=== PATIENT | male | born 1985 | race Asian ===

== ENCOUNTER 2017-03-05 09:38 | Day surgery (SDC) | payer OTHER ==
--- NOTE | 2017-03-02 13:49 | HP ---
PREOPERATIVE HISTORY AND PHYSICAL: DATE OF SURGERY/ADMISSION: 03/05/17 [facility] DATE OF OFFICE VISIT/ENCOUNTER: 02/28/17 ATTENDING SURGEON: Esha Pennington MD * (DICTATED BY JD MENDOZA) PROCEDURE: Right thumb foreign body removal. CHIEF COMPLAINT: Foreign body, right thumb. HISTORY OF PRESENT ILLNESS: This is a 31-year-old male who injured his right thumb approximately 2 months ago. 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 He has had persistent pain especially when he touches it or presses on his thumb. He had an x-ray, which showed foreign body in his thumb and would like to have it removed. PAST MEDICAL HISTORY: Unremarkable. PAST SURGICAL HISTORY: None. CURRENT MEDICATIONS: None. ALLERGIES: No known drug allergies. FAMILY MEDICAL HISTORY: Noncontributory. 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 He denies smoking, recreational drug use, and does not drink alcohol. REVIEW OF SYSTEMS: General: Negative for fevers, chills, or night sweats. No known anesthesia problems. HEENT: Negative for headache, lightheadedness, or syncopal episodes. Integumentary: Negative for abrasions, lesions, or open wounds. Cardiothoracic: Negative for hypertension, chest pain, palpitations, or edema. Pulmonary: Negative for shortness of breath with exertion, chronic cough, or COPD. GI: Negative for nausea, vomiting, diarrhea, constipation, or GERD. : Negative for nocturia, urinary frequency, urgency, history of UTIs, or kidney problems. Musculoskeletal: Positive for current complaint. Negative for chronic or intermittent back pain or history of fractures. Neurologic: Negative for paresthesias, numbness, history of seizures, stroke, or epilepsy. Endocrine: Negative for diabetes or thyroid issues. Hematologic: Negative for easy bruising, anemia, excessive bleeding, or history of DVT. Infectious Disease: Negative for history of MRSA, hepatitis C, or HIV. PHYSICAL EXAMINATION GENERAL: Well-developed, well-nourished 31-year-old male in no acute distress. VITAL SIGNS: Height 5 feet 9 inches, weight 179 pounds. Pulse rate 72, blood pressure 118/66. HEENT: Normocephalic, atraumatic. Pupils are equal, round, and reactive to light and accommodation. NECK: Supple. No palpable lymph nodes. Throat is clear. PULMONARY: Lungs are clear to auscultation bilaterally. No wheezes, rales, or rhonchi. Cardiovascular: Regular rate and rhythm. S1 and S2. No murmurs, rubs, or gallops. No edema. ABDOMEN: Positive bowel sounds, soft, nontender. NEUROLOGIC: Alert and oriented x3. Cranial nerves II through XII are intact. Sensation is intact to light touch. PERIPHERAL VASCULAR: 2+ radial and ulnar pulses. Negative Jas test. MUSCULOSKELETAL: On exam of his right thumb, he has a healed laceration on the thumb pad. It is tender to palpation. He has full flexion and extension of the thumb and neurovascular function is intact. Finger and wrist motion are normal. IMAGING STUDIES: X-rays: AP, lateral, and oblique of the right thumb shows a foreign body in the pad of the thumb, very near the distal phalanx on the volar aspect. IMPRESSION: Foreign body, right thumb. PLAN: The patient is scheduled to undergo a right thumb foreign body removal with Dr. Pennington on 03/05/17. He will return to the office in 10 to 14 days postop for follow up and suture removal. A prescription for Ultracet was e- scribed to the patient's pharmacy for postoperative pain management. JD MENDOZA [id number]/[facility] #: [id number] [place]
[~2017-03-05 09:38] MED LIST: Acetaminophen TAB* 325 MG PO PRN; Buffered Lidocaine 0.9% SYRIN* 5 ML/SYR SYRINGE INTRADERM ONE; DiMENhydriNATE IV* 50 MG/ML VIAL IV PUSH PRN; Ondansetron INJ* 2 MG/ML VIAL IV PRN; fentaNYL* 50 MCG/ML 2 ML VIAL (100 MCG VIAL) IV PRN; oxyCODONE/Acetamin 5/325 MG* TAB PO PRN
[2017-03-05] MEDS ORDERED: fentaNYL* 50 MCG/ML 2 ML VIAL (100 MCG VIAL) ONE (10:51)
[2017-03-05] MEDS ORDERED: Midazolam* 1 MG/ML 2 ML VIAL (2 MG) ONE (10:51)
[2017-03-05] MEDS ORDERED: Lidocaine 1% INJ* 10 MG/ML 30 ML SDV ONE (11:06)
[2017-03-05] MEDS ORDERED: Ketorolac INJ* 30 MG/ML 1 ML VIAL ONE (11:22)
[2017-03-05] MEDS ORDERED: Lidocaine 2% PF * 5 ML VIAL ONE (11:22)
[2017-03-05] MEDS ORDERED: Propofol* 10 MG/ML 20 ML BTL IV PUSH ONE (11:22)
[2017-03-05 12:29] VITALS: BP 109/70
--- NOTE | 2017-03-06 04:30 | OP ---
DATE OF OPERATION: 03/05/17 [facility] DATE OF : 87 SURGEON: Esha Pennington MD SENIOR [employer]ERIALS SCIENTIST: JD Hernandez ANESTHESIOLOGIST: Dr. Brunson ANESTHESIA: Local MAC. PRE-OP DIAGNOSIS: Foreign body in the right thumb. POST-OP DIAGNOSIS: Foreign body in the right thumb. OPERATIVE PROCEDURE: Right thumb exploration. ESTIMATED BLOOD LOSS: Zero. TOURNIQUET TIME: About 15 minutes. INDICATION FOR PROCEDURE: Bk is a 31-year-old male who suffered an injury of his right thumb when he broke some glass in his lab. He feels a persistent foreign body in his thumb. He presents for removal. DESCRIPTION OF PROCEDURE: The patient was brought to the operating room, was given a sedation anesthetic and a digital block with 10 cc of 1% plain lidocaine. The skin of his left hand and forearm was prepped and draped in usual sterile fashion. A Tourni-Cot was placed over the thumb and used to exsanguinate. A diagonal incision was made on the thumb pad and we carefully dissected through the subcutaneous tissue all the way down to the volar cortex of the distal phalanx. No specific foreign body was found. The foreign body that had been visualized on x- ray was directly adjacent to the volar cortex of the distal phalanx and this was thoroughly explored. There was a very tiny piece of glass that was visualized at one point and presumably removed with copious irrigation. The skin edges were reapproximated with 4-0 nylon suture. The wound was dressed with Xeroform , 4x4, Webril, and Coban. The patient tolerated the procedure well and was brought to the recovery room in good condition. [id number]/[facility] #: [id number] [facility]
== END 2017-03-05 12:51 | disposition home or self-care (01) ==
LOC: OREAST 09:38
PROVIDERS: ATTEND Orthopaedic Surgery
DX: S61.041A Puncture wound with foreign body of right thumb without damage to nail, initial encounter (principal); W25.XXXA Contact with sharp glass, initial encounter; W45.8XXA Other foreign body or object entering through skin, initial encounter; W22.8XXA Striking against or struck by other objects, initial encounter; Y92.9 Unspecified place or not applicable; Y99.9 Unspecified external cause status
CPT/HCPCS: J1885; J2250; J2704; J3010